=== PATIENT | male | born 1980 | race Two or more races ===

== ENCOUNTER 2023-08-20 21:33 | Inpatient (IN) | payer OTHER ==
[~2023-08-20] VITALS: Ht 188 cm; Wt 84.1 kg
[2023-08-20 22:14] LABS: ANION GAP 7 mmol/L (8-16); CALCIUM, TOTAL 9.1 mg/dL (8.8-10.5); CARBON DIOXIDE 32 mmol/L (22-29); CHLORIDE 107 mmol/L (98-107); CREATININE 0.94 mg/dL (0.60-1.30); GLOMERULAR FILTR. RATE CALC > 60 mL/min (>60); GLUCOSE,RANDOM 75 mg/dL (70-110); POTASSIUM 3.8 mmol/L (3.5-5.1); SODIUM SERUM 146 mmol/L (136-145); UREA NITROGEN, BLOOD 17 mg/dL (7-18)
[2023-08-20 22:16] LABS: BASOPHILS % (AUTO) 0.8 % (0.0-2.0); HEMATOCRIT 42.7 % (41-53); HEMOGLOBIN 14.1 g/dL (13.5-17.5); LYMPHOCYTES # (AUTO) 1.5 K/uL (1.0-4.8); LYMPHOCYTES % (AUTO) 37.3 % (22.0-44.0); MEAN CORPUSCULAR HEMOGLOBIN 31.6 pg (26.0-34.0); MEAN CORPUSCULAR VOLUME 96 fL (80-100); MONOCYTES # (AUTO) 0.4 K/uL (0.1-1.0); NEUTROPHILS # (AUTO) 1.9 K/uL (1.8-7.7); NEUTROPHILS % (AUTO) 46.9 % (40.0-70.0); PLATELET COUNT (AUTO) 252 K/uL (150-450); RED BLOOD CELL COUNT(AUTO) 4.45 MIL/uL (4.50-5.90); RED CELL DISTRIBUTION WIDTH 13.8 % (11.5-14.5); WHITE BLOOD COUNT (AUTO) 4.1 K/uL (4.5-11.0)
[2023-08-20 22:20] LABS: ALANINE AMINOTRANSFERASE 23 U/L (12-78); ALBUMIN 3.8 g/dL (3.4-5.0); ALKALINE PHOSPHATASE 109 U/L (46-116); ASPARTATE AMINOTRANSFERASE 18 U/L (15-37); BILIRUBIN,TOTAL 0.3 mg/dL (0.1-1.0); TOTAL PROTEIN, SERUM 7.3 g/dL (6.4-8.2)
[2023-08-20 22:25] LABS: COVID AG,FIA SOURCE NASAL SWAB
[2023-08-20 22:38] LABS: ALCOHOL, BLOOD (SERUM) < 3 mg/dL (0-10)
[2023-08-20 22:49] LABS: SARS-COV2 (COVID) ANTIGEN,FIA Negative (Negative)
[2023-08-20 22:57] LABS: ALCOHOL, URINE DRUG SCREEN NEGATIVE (NEGATIVE); AMPHET/METH SCREEN,URINE POSITIVE (NEGATIVE); BARBITURATE SCREEN, URINE NEGATIVE (NEGATIVE); BENZODIAZEPINES SCREEN,URINE NEGATIVE (NEGATIVE); CANNABINOID SCREEN,URINE NEGATIVE (NEGATIVE); COCAINE SCREEN,URINE NEGATIVE (NEGATIVE); METHADONE SCREEN, URINE NEGATIVE (NEGATIVE); PHENCYCLIDINE SCREEN,URINE NEGATIVE (NEGATIVE)
[2023-08-20 23:11] LABS: OPIATE SCREEN,URINE NEGATIVE (NEGATIVE)
[2023-08-21 02:20] VITALS: BP 116/67; PULSE 53; RESP 18; TEMP 97.6
[2023-08-21 08:07] VITALS: BP 121/69; PULSE 60; RESP 18; TEMP 97.8
[2023-08-21] MEDS ORDERED: BISACODYL 10 MG RECTAL RECTAL SUPPOSITORY PR PRN (10:00)
[2023-08-21] MEDS ORDERED: ZOLPIDEM TARTRATE 5 MG TABLET PO PRN (10:00)
[2023-08-21] MEDS ORDERED: MAGNESIUM HYDROXIDE SUSPENSION 30 ML UDCUP PO PRN (10:00)
[2023-08-21] MEDS ORDERED: IPRATROPIUM BROMIDE 0.5 MG/2.5 ML NEB SOLUTION NEB PRN (10:00)
[2023-08-21] MEDS ORDERED: ALBUTEROL SULFATE 2.5 MG/0.5 ML NEB SOLUTION NEB PRN (10:00)
[2023-08-21] MEDS ORDERED: ONDANSETRON HCL 4 MG/2 ML VIAL IVP PRN (10:00)
[2023-08-21] MEDS: HEPARIN SODIUM,PORCINE 5,000 UNITS/ML VIAL SQ SCH (16:06)
[2023-08-21 19:51] VITALS: BP 102/56; PULSE 72; RESP 18; TEMP 97.8
[2023-08-21] MEDS: RisperiDONE 1 MG TABLET PO SCH (20:35)
[2023-08-22 04:33] VITALS: BP 137/58; PULSE 85; RESP 20; TEMP 98
[2023-08-22 08:04] VITALS: BP 105/58; PULSE 88; RESP 19; TEMP 97.6
[2023-08-22 08:06] LABS: HEPATITIS C AB (EIA) Non Reactive (Non Reactive)
[2023-08-22] MEDS: PANTOPRAZOLE SODIUM 40 MG DR TABLET PO SCH (08:35)
[2023-08-22] MEDS ORDERED: ALBUTEROL SULFATE HFA 90 MCG/PUFF 8 GM INHALER IH PRN (10:45)
[2023-08-22] MEDS: RisperiDONE 1 MG TABLET PO SCH (20:27)
[2023-08-22 20:48] VITALS: BP 99/59; PULSE 66; RESP 18; TEMP 98
[2023-08-23 03:39] VITALS: BP 99/57; PULSE 54; RESP 18; TEMP 97.7
[2023-08-23 06:57] LABS: ANION GAP 6 mmol/L (8-16); CALCIUM, TOTAL 8.6 mg/dL (8.8-10.5); CARBON DIOXIDE 28 mmol/L (22-29); CHLORIDE 104 mmol/L (98-107); CREATININE 0.84 mg/dL (0.60-1.30); GLOMERULAR FILTR. RATE CALC > 60 mL/min (>60); GLUCOSE,RANDOM 96 mg/dL (70-110); POTASSIUM 3.9 mmol/L (3.5-5.1); SODIUM SERUM 138 mmol/L (136-145); UREA NITROGEN, BLOOD 14 mg/dL (7-18)
[2023-08-23 08:19] VITALS: BP 100/59; PULSE 61; RESP 18; TEMP 97.8
[2023-08-23 19:28] VITALS: BP 98/57; PULSE 72; RESP 18; TEMP 97.8
[2023-08-23] MEDS: ACETAMINOPHEN 325 MG TABLET PO PRN (19:45)
[2023-08-24 04:48] VITALS: BP 122/50; PULSE 83; RESP 18; TEMP 97.8
[2023-08-24 08:22] VITALS: BP 100/57; PULSE 68; RESP 18; TEMP 97.7
[2023-08-24 19:20] VITALS: BP 115/65; PULSE 65; RESP 18; TEMP 98
[2023-08-25 03:59] VITALS: BP 109/62; PULSE 77; RESP 18; TEMP 97.7
[2023-08-25 08:36] VITALS: BP 107/68; PULSE 88; RESP 20; TEMP 98.4
== END 2023-08-25 15:05 | DRG 897 ==
LOC: EMS 21:37 → 6S 08-21 02:09
PROVIDERS: ADMIT Hospitalist; ATTEND Hospitalist
DX: F19.959 Other psychoactive substance use, unspecified with psychoactive substance-induced psychotic disorder, unspecified (principal); R45.851 Suicidal ideations; F10.90 Alcohol use, unspecified, uncomplicated; F32.9 Major depressive disorder, single episode, unspecified; Z20.822 Contact with and (suspected) exposure to COVID-19; J45.909 Unspecified asthma, uncomplicated; F15.10 Other stimulant abuse, uncomplicated; Z90.49 Acquired absence of other specified parts of digestive tract; Z79.899 Other long term (current) drug therapy
CPT/HCPCS: 80048; 80053; 80307; 85025; 86803; 87340; 99285; G0480; J1644